=== PATIENT | male | born 1955 | race African-American/Black ===

== ENCOUNTER 2017-07-15 21:47 | Emergency (ER) | payer MEDICAID ==
[~2017-07-15] VITALS: Ht 177.8 cm; Wt 100.4 kg
[2017-07-15 22:47] VITALS: BP 136/96
== END 2017-07-16 02:18 | disposition home or self-care (01) ==
LOC: ER 21:47
DX: L30.9 Dermatitis, unspecified (principal); I10 Essential (primary) hypertension
CPT/HCPCS: 99281; 99282